=== PATIENT | male | born 1980 | race Caucasian/White ===

== ENCOUNTER 2017-08-21 10:34 | Inpatient (IN) | payer OTHER ==
[~2017-08-21] VITALS: Ht 180.3 cm; Wt 102.1 kg
[2017-08-21] MEDS ORDERED: ondansetron/PF 4mg/2ml inj IV ONE (10:50)
[2017-08-21] MEDS ORDERED: morphine 4 MG/ML inj SYRINge IV ONE ×2 (10:50→12:10)
[2017-08-21] MEDS ORDERED: iohexol 300mg/ml 100ml inj. ONE (10:58)
[2017-08-21 11:14] LABS: BASOPHILS % (AUTO) 0.2 % (0-1); EOSINOPHILS % (AUTO) 0.4 % (0-6); HEMATOCRIT 48.6 % (42.0-52.0); LYMPHOCYTES # (AUTO) 1.1 X10'3 (1.1-4.8); LYMPHOCYTES % (AUTO) 9.7 % (21-51); MEAN CORPUSCULAR HEMOGLOBIN 35.4 PG (27.0-31.0); MEAN CORPUSCULAR HGB CONC 34.9 % (33.0-36.5); MEAN CORPUSCULAR VOLUME 101.5 FL (78-98); MEAN PLATELET VOLUME 6.7 FL (7.4-10.4); MONOCYTES # (AUTO) 0.4 X10'3 (0-0.9); MONOCYTES % (AUTO) 3.9 % (2-12); NEUTROPHILS # (AUTO) 9.8 X10'3 (1.8-7.7); NEUTROPHILS % (AUTO) 85.8 % (42-75); PLATELET COUNT 217 X10'3 (140-440); RED BLOOD COUNT 4.79 X10'6 (4.70-6.10); RED CELL DISTRIBUTION WIDTH 11.8 % (11.5-14.5); WHITE BLOOD COUNT 11.4 X10'3 (4.5-11.0)
[2017-08-21 11:23] LABS: AMYLASE 41 U/L (25-115); LIPASE 86 U/L (73-393)
[2017-08-21] MEDS ORDERED: magnesium Cl slow-release 64mg tablet PO PRN (12:25)
[2017-08-21] MEDS ORDERED: ondansetron/PF 4mg/2ml inj IV PRN (12:25)
[2017-08-21] MEDS ORDERED: acetaminophen 325mg tablet PO PRN ×2 (12:25)
[2017-08-21] MEDS ORDERED: magnesium 2GM in 50ml NS 50 ML IV PRN (12:25)
[2017-08-21] MEDS ORDERED: morphine 4 MG/ML inj SYRINge IV PRN (12:25)
[2017-08-21] MEDS ORDERED: potassium Cl 20 mEq SR tablet PO PRN ×2 (12:25)
[2017-08-21] MEDS ORDERED: HYDROcodone/acetaminophen 5mg/325mg tablet PO PRN (12:25)
[2017-08-21] MEDS ORDERED: potassium Cl 40MEQ/NS 500ml 500 ML IV PRN ×2 (12:25)
[2017-08-21] MEDS ORDERED: bisacodyl 10mg suppository rectal RC PRN (12:25)
[2017-08-21] MEDS ORDERED: magnesium 4gm in 100ml NS 100 ML IV PRN (12:25)
[2017-08-21] MEDS ORDERED: mag hydrox/Alum hydrox/simeth 30ml oral suspension PO PRN (12:25)
[2017-08-21] MEDS: morphine 4 MG/ML inj SYRINge IV PRN ×2 (14:28→20:44)
[2017-08-21 18:00] VITALS: BP 136/87
[2017-08-21] MEDS: HYDROcodone/acetaminophen 10/325mg tab PO PRN (18:03)
[2017-08-21] MEDS: K and/or MAG REPLACEMENT MC SCH (18:39)
[2017-08-21] MEDS: LORazepam 2 mg/ml vial IV PRN (21:21)
[2017-08-21 23:00] VITALS: BP 128/85
[2017-08-22] MEDS: HYDROcodone/acetaminophen 10/325mg tab PO PRN ×5 (00:21→21:44)
[2017-08-22] MEDS: morphine 4 MG/ML inj SYRINge IV PRN ×4 (03:24→17:21)
[2017-08-22 06:00] VITALS: BP 116/72
[2017-08-22] MEDS: K and/or MAG REPLACEMENT MC SCH (07:21)
[2017-08-22 07:23] LABS: BASOPHILS % (AUTO) 0 % (0-1); EOSINOPHILS # (AUTO) 0.1 X10'3 (0-0.9); EOSINOPHILS % (AUTO) 1.9 % (0-6); HEMATOCRIT 45.3 % (42.0-52.0); LYMPHOCYTES # (AUTO) 1.8 X10'3 (1.1-4.8); LYMPHOCYTES % (AUTO) 26.3 % (21-51); MEAN CORPUSCULAR HEMOGLOBIN 35.8 PG (27.0-31.0); MEAN CORPUSCULAR HGB CONC 35.2 % (33.0-36.5); MEAN CORPUSCULAR VOLUME 101.7 FL (78-98); MONOCYTES # (AUTO) 0.4 X10'3 (0-0.9); MONOCYTES % (AUTO) 6.4 % (2-12); NEUTROPHILS # (AUTO) 4.5 X10'3 (1.8-7.7); NEUTROPHILS % (AUTO) 65.4 % (42-75); PLATELET COUNT 195 X10'3 (140-440); RED BLOOD COUNT 4.45 X10'6 (4.70-6.10); RED CELL DISTRIBUTION WIDTH 11.9 % (11.5-14.5); WHITE BLOOD COUNT 6.9 X10'3 (4.5-11.0)
[2017-08-22 07:52] LABS: ALANINE AMINOTRANSFERASE 77 U/L (12-78); ALBUMIN 3.5 G/DL (3.4-5.0); ALKALINE PHOSPHATASE 90 IU/L (46-116); ANION GAP 10 (8-16); ASPARTATE AMINO TRANSFERASE 40 U/L (10-37); BILIRUBIN,TOTAL 0.9 MG/DL (0.1-1.0); BLOOD UREA NITROGEN 8 MG/DL (7-18); BUN/CREATININE RATIO 8.6 (5.4-32.0); CALCIUM 8.8 MG/DL (8.5-10.1); CHLORIDE 101 MMOL/L (99-107); CREATININE 0.93 MG/DL (0.60-1.10); GLUCOSE 109 MG/DL (70-104); PHOSPHORUS 3.9 MG/DL (2.3-4.5); POTASSIUM 3.7 MMOL/L (3.5-5.1); SODIUM 136 MMOL/L (135-145); TOTAL CARBON DIOXIDE 25.3 MMOL/L (24-32); TOTAL PROTEIN 7.1 G/DL (6.4-8.2); eGFR > 90 ML/MIN
[2017-08-22 10:00] VITALS: BP 113/77
[2017-08-22 17:00] VITALS: BP 136/83
[2017-08-22] MEDS: thiamine 100mg tablet PO SCH (19:41)
[2017-08-22] MEDS: LORazepam 2 mg/ml vial IV PRN (21:44)
[2017-08-22 22:00] VITALS: BP 122/78
[2017-08-23] MEDS: HYDROcodone/acetaminophen 10/325mg tab PO PRN ×3 (02:00→11:36)
[2017-08-23 06:00] VITALS: BP 134/85
[2017-08-23 06:24] LABS: ALANINE AMINOTRANSFERASE 64 U/L (12-78); ALBUMIN 3.4 G/DL (3.4-5.0); ALBUMIN/GLOBULIN RATIO 0.9 (1.1-1.5); ALKALINE PHOSPHATASE 85 IU/L (46-116); ANION GAP 10 (8-16); ASPARTATE AMINO TRANSFERASE 33 U/L (10-37); BLOOD UREA NITROGEN 8 MG/DL (7-18); BUN/CREATININE RATIO 9.2 (5.4-32.0); CALCIUM 8.5 MG/DL (8.5-10.1); CHLORIDE 100 MMOL/L (99-107); CREATININE 0.87 MG/DL (0.60-1.10); GLUCOSE 111 MG/DL (70-104); MAGNESIUM 2.3 MG/DL (1.5-2.4); PHOSPHORUS 3.8 MG/DL (2.3-4.5); POTASSIUM 3.5 MMOL/L (3.5-5.1); SODIUM 137 MMOL/L (135-145); TOTAL CARBON DIOXIDE 26.6 MMOL/L (24-32); TOTAL PROTEIN 7.1 G/DL (6.4-8.2); eGFR > 90 ML/MIN
[2017-08-23 06:49] LABS: BASOPHILS % (AUTO) 0.2 % (0-1); EOSINOPHILS # (AUTO) 0.2 X10'3 (0-0.9); EOSINOPHILS % (AUTO) 2.9 % (0-6); HEMATOCRIT 42.7 % (42.0-52.0); LYMPHOCYTES # (AUTO) 1.7 X10'3 (1.1-4.8); LYMPHOCYTES % (AUTO) 21.6 % (21-51); MEAN CORPUSCULAR HEMOGLOBIN 35.7 PG (27.0-31.0); MEAN CORPUSCULAR HGB CONC 35.1 % (33.0-36.5); MEAN CORPUSCULAR VOLUME 101.8 FL (78-98); MEAN PLATELET VOLUME 7.1 FL (7.4-10.4); MONOCYTES # (AUTO) 0.5 X10'3 (0-0.9); MONOCYTES % (AUTO) 6.3 % (2-12); NEUTROPHILS # (AUTO) 5.4 X10'3 (1.8-7.7); PLATELET COUNT 190 X10'3 (140-440); RED CELL DISTRIBUTION WIDTH 11.9 % (11.5-14.5); WHITE BLOOD COUNT 7.8 X10'3 (4.5-11.0)
[2017-08-23] MEDS: thiamine 100mg tablet PO SCH ×2 (07:02→21:12)
[2017-08-23] MEDS: magnesium hydroxide 30ml (MOM) UD suspension PO PRN (07:03)
[2017-08-23] MEDS: K and/or MAG REPLACEMENT MC SCH (08:00)
[2017-08-23 10:00] VITALS: BP 130/81
[2017-08-23] MEDS: morphine 4 MG/ML inj SYRINge IV PRN ×2 (10:22→18:41)
[2017-08-23] MEDS: simethicone 125mg capsule PO SCH ×2 (12:08→21:12)
[2017-08-23] MEDS ORDERED: simethicone 80mg chew tab PO ONE (17:25)
[2017-08-23 18:00] VITALS: BP 136/82
[2017-08-23] MEDS: LORazepam 2 mg/ml vial IV PRN (21:13)
[2017-08-23 22:00] VITALS: BP 130/72
[2017-08-23] MEDS: diphenhydrAMINE 25mg capsule PO PRN (22:01)
[2017-08-24] MEDS: morphine 4 MG/ML inj SYRINge IV PRN ×4 (02:26→19:21)
[2017-08-24 06:00] VITALS: BP 133/84
[2017-08-24 06:14] LABS: BASOPHILS % (AUTO) 0.5 % (0-1); EOSINOPHILS # (AUTO) 0.1 X10'3 (0-0.9); EOSINOPHILS % (AUTO) 1.6 % (0-6); HEMATOCRIT 43.8 % (42.0-52.0); HEMOGLOBIN 15.4 g/dl (14.0-17.9); LYMPHOCYTES # (AUTO) 1.6 X10'3 (1.1-4.8); LYMPHOCYTES % (AUTO) 19.6 % (21-51); MEAN CORPUSCULAR HEMOGLOBIN 36.1 PG (27.0-31.0); MEAN CORPUSCULAR HGB CONC 35.2 % (33.0-36.5); MEAN CORPUSCULAR VOLUME 102.5 FL (78-98); MEAN PLATELET VOLUME 6.8 FL (7.4-10.4); MONOCYTES # (AUTO) 0.5 X10'3 (0-0.9); MONOCYTES % (AUTO) 6.7 % (2-12); NEUTROPHILS # (AUTO) 5.7 X10'3 (1.8-7.7); NEUTROPHILS % (AUTO) 71.6 % (42-75); PLATELET COUNT 201 X10'3 (140-440); RED BLOOD COUNT 4.28 X10'6 (4.70-6.10); RED CELL DISTRIBUTION WIDTH 11.6 % (11.5-14.5); WHITE BLOOD COUNT 7.9 X10'3 (4.5-11.0)
[2017-08-24 06:37] LABS: ALANINE AMINOTRANSFERASE 53 U/L (12-78); ALBUMIN 3.4 G/DL (3.4-5.0); ALBUMIN/GLOBULIN RATIO 0.9 (1.1-1.5); ALKALINE PHOSPHATASE 82 IU/L (46-116); ANION GAP 10 (8-16); ASPARTATE AMINO TRANSFERASE 25 U/L (10-37); BILIRUBIN,TOTAL 0.9 MG/DL (0.1-1.0); BLOOD UREA NITROGEN 7 MG/DL (7-18); BUN/CREATININE RATIO 7.9 (5.4-32.0); CHLORIDE 99 MMOL/L (99-107); CREATININE 0.89 MG/DL (0.60-1.10); GLUCOSE 106 MG/DL (70-104); MAGNESIUM 2.5 MG/DL (1.5-2.4); PHOSPHORUS 3.6 MG/DL (2.3-4.5); POTASSIUM 3.7 MMOL/L (3.5-5.1); SODIUM 136 MMOL/L (135-145); TOTAL CARBON DIOXIDE 27.1 MMOL/L (24-32); TOTAL PROTEIN 7.1 G/DL (6.4-8.2); eGFR > 90 ML/MIN
[2017-08-24] MEDS: K and/or MAG REPLACEMENT MC SCH (07:36)
[2017-08-24] MEDS: simethicone 125mg capsule PO SCH ×3 (07:40→21:02)
[2017-08-24] MEDS: thiamine 100mg tablet PO SCH ×2 (07:40→19:21)
[2017-08-24] MEDS ORDERED: NO HOME MEDS (11:59)
[2017-08-24 18:00] VITALS: BP 141/76
[2017-08-24] MEDS: LORazepam 2 mg/ml vial IV PRN (21:02)
[2017-08-24 22:00] VITALS: BP 115/66
[2017-08-25 05:00] VITALS: BP 123/82
[2017-08-25 06:13] LABS: ALANINE AMINOTRANSFERASE 65 U/L (12-78); ALBUMIN 3.5 G/DL (3.4-5.0); ALBUMIN/GLOBULIN RATIO 0.9 (1.1-1.5); ALKALINE PHOSPHATASE 83 IU/L (46-116); ANION GAP 9 (8-16); ASPARTATE AMINO TRANSFERASE 38 U/L (10-37); BILIRUBIN,TOTAL 0.9 MG/DL (0.1-1.0); BLOOD UREA NITROGEN 10 MG/DL (7-18); BUN/CREATININE RATIO 11.6 (5.4-32.0); CHLORIDE 101 MMOL/L (99-107); CREATININE 0.86 MG/DL (0.60-1.10); GLUCOSE 112 MG/DL (70-104); MAGNESIUM 2.4 MG/DL (1.5-2.4); PHOSPHORUS 3.9 MG/DL (2.3-4.5); POTASSIUM 3.8 MMOL/L (3.5-5.1); SODIUM 135 MMOL/L (135-145); TOTAL CARBON DIOXIDE 25.1 MMOL/L (24-32); TOTAL PROTEIN 7.4 G/DL (6.4-8.2); eGFR > 90 ML/MIN
[2017-08-25 06:28] LABS: BASOPHILS % (AUTO) 0.3 % (0-1); EOSINOPHILS # (AUTO) 0.2 X10'3 (0-0.9); EOSINOPHILS % (AUTO) 1.9 % (0-6); HEMATOCRIT 44.6 % (42.0-52.0); HEMOGLOBIN 15.8 g/dl (14.0-17.9); LYMPHOCYTES # (AUTO) 1.7 X10'3 (1.1-4.8); LYMPHOCYTES % (AUTO) 18.7 % (21-51); MEAN CORPUSCULAR HEMOGLOBIN 35.9 PG (27.0-31.0); MEAN CORPUSCULAR HGB CONC 35.5 % (33.0-36.5); MEAN CORPUSCULAR VOLUME 101.1 FL (78-98); MEAN PLATELET VOLUME 6.7 FL (7.4-10.4); MONOCYTES # (AUTO) 0.6 X10'3 (0-0.9); MONOCYTES % (AUTO) 6.9 % (2-12); NEUTROPHILS # (AUTO) 6.4 X10'3 (1.8-7.7); NEUTROPHILS % (AUTO) 72.2 % (42-75); PLATELET COUNT 228 X10'3 (140-440); RED BLOOD COUNT 4.41 X10'6 (4.70-6.10); RED CELL DISTRIBUTION WIDTH 11.6 % (11.5-14.5); WHITE BLOOD COUNT 8.9 X10'3 (4.5-11.0)
[2017-08-25] MEDS: K and/or MAG REPLACEMENT MC SCH (08:11)
[2017-08-25] MEDS: simethicone 125mg capsule PO SCH ×3 (08:15→21:10)
[2017-08-25] MEDS: thiamine 100mg tablet PO SCH ×2 (08:15→21:10)
[2017-08-25] MEDS: HYDROcodone/acetaminophen 10/325mg tab PO PRN ×2 (08:15→14:33)
[2017-08-25 10:00] VITALS: BP 128/78
[2017-08-25 18:00] VITALS: BP 121/73
[2017-08-25] MEDS: diphenhydrAMINE 25mg capsule PO PRN (21:10)
[2017-08-25] MEDS: magnesium hydroxide 30ml (MOM) UD suspension PO PRN (21:10)
[2017-08-25 22:00] VITALS: BP 106/54
[2017-08-26 05:00] VITALS: BP 118/71
[2017-08-26 06:32] LABS: BASOPHILS % (AUTO) 0.3 % (0-1); EOSINOPHILS # (AUTO) 0.2 X10'3 (0-0.9); EOSINOPHILS % (AUTO) 3.2 % (0-6); HEMATOCRIT 42.5 % (42.0-52.0); HEMOGLOBIN 15.2 g/dl (14.0-17.9); LYMPHOCYTES # (AUTO) 1.9 X10'3 (1.1-4.8); LYMPHOCYTES % (AUTO) 26.9 % (21-51); MEAN CORPUSCULAR HEMOGLOBIN 36.2 PG (27.0-31.0); MEAN CORPUSCULAR HGB CONC 35.9 % (33.0-36.5); MEAN PLATELET VOLUME 7.1 FL (7.4-10.4); MONOCYTES # (AUTO) 0.5 X10'3 (0-0.9); MONOCYTES % (AUTO) 7.7 % (2-12); NEUTROPHILS # (AUTO) 4.3 X10'3 (1.8-7.7); NEUTROPHILS % (AUTO) 61.9 % (42-75); PLATELET COUNT 232 X10'3 (140-440); RED CELL DISTRIBUTION WIDTH 11.7 % (11.5-14.5); WHITE BLOOD COUNT 6.9 X10'3 (4.5-11.0)
[2017-08-26 06:49] LABS: ALANINE AMINOTRANSFERASE 76 U/L (12-78); ALBUMIN 3.5 G/DL (3.4-5.0); ALBUMIN/GLOBULIN RATIO 0.9 (1.1-1.5); ALKALINE PHOSPHATASE 82 IU/L (46-116); ANION GAP 9 (8-16); ASPARTATE AMINO TRANSFERASE 48 U/L (10-37); BILIRUBIN,TOTAL 0.8 MG/DL (0.1-1.0); BLOOD UREA NITROGEN 9 MG/DL (7-18); BUN/CREATININE RATIO 9.6 (5.4-32.0); CALCIUM 8.8 MG/DL (8.5-10.1); CHLORIDE 100 MMOL/L (99-107); CREATININE 0.94 MG/DL (0.60-1.10); GLUCOSE 99 MG/DL (70-104); MAGNESIUM 2.5 MG/DL (1.5-2.4); PHOSPHORUS 4.1 MG/DL (2.3-4.5); POTASSIUM 3.4 MMOL/L (3.5-5.1); SODIUM 135 MMOL/L (135-145); TOTAL CARBON DIOXIDE 26.4 MMOL/L (24-32); TOTAL PROTEIN 7.2 G/DL (6.4-8.2); eGFR 90 ML/MIN
[2017-08-26] MEDS: K and/or MAG REPLACEMENT MC SCH (07:26)
[2017-08-26] MEDS: simethicone 125mg capsule PO SCH (07:32)
[2017-08-26] MEDS: thiamine 100mg tablet PO SCH (07:32)
[2017-08-26] MEDS: HYDROcodone/acetaminophen 10/325mg tab PO PRN (07:32)
[2017-08-26 10:00] VITALS: BP 138/84
[2017-08-26] MEDS ORDERED: MAGN400O6 PO (12:11)
[2017-08-26] MEDS ORDERED: SIME125C87 PO (12:11)
[2017-08-26] MEDS ORDERED: THI100T PO (12:11)
== END 2017-08-26 14:04 | disposition home health service (06) | DRG 552 ==
LOC: ER 10:35 → ED HOLD 12:25 → ORTHO 4S 18:02 → OBSVTOIN 08-24 08:20
PROVIDERS: ADMIT Family Medicine; ATTEND Family Medicine
PROC: 2W35X3Z Immobilization of Back using Brace (ICD-10-PCS; principal; 2017-08-21)
PROC: BW251ZZ Computerized Tomography (CT Scan) of Chest, Abdomen and Pelvis using Low Osmolar Contrast (ICD-10-PCS; 2017-08-21)
DX: S22.081A Stable burst fracture of T11-T12 vertebra, initial encounter for closed fracture (principal); S09.8XXA Other specified injuries of head, initial encounter; F10.10 Alcohol abuse, uncomplicated; F12.10 Cannabis abuse, uncomplicated; F17.210 Nicotine dependence, cigarettes, uncomplicated; G89.29 Other chronic pain; R14.0 Abdominal distension (gaseous); L40.9 Psoriasis, unspecified; Z91.030 Bee allergy status; V03.10XA Pedestrian on foot injured in collision with car, pick-up truck or van in traffic accident, initial encounter; Y99.0 Civilian activity done for income or pay; Y92.89 Other specified places as the place of occurrence of the external cause; Z71.6 Tobacco abuse counseling; Z71.41 Alcohol abuse counseling and surveillance of alcoholic
CPT/HCPCS: 36415; 70450; 71045; 71260; 72070; 72125; 74018; 74177; 80053; 82150; 83690; 83735; 84100; 85025; 86885; 86900; 86901; 87070; 96374; 96375; 96376; 97116; 97162; 97530; 97535; 99285; G0378; J2060; J2270; J2405; J7030; Q0163; Q9967